=== PATIENT | male | born 1970 | race Hispanic/Latino ===

== ENCOUNTER 2017-05-24 06:41 | Emergency (ER) | payer SELFPAY | END 2017-05-24 07:10 | disposition left against medical advice (07) | LOC: ED 06:41 | DX: M54.9 Dorsalgia, unspecified (principal); Z53.21 Procedure and treatment not carried out due to patient leaving prior to being seen by health care provider ==

== ENCOUNTER 2020-10-14 10:18 | Emergency (ER) | payer SELFPAY ==
[2020-10-14] MEDS ORDERED: KETOROLAC 60 MG/2 ML INJ IM ONE (11:30)
--- NOTE | 2020-10-14 12:14 | Emergency Department Report ---
ED General Adult HPI - General Chief complaint: Back Pain/Injury Stated complaint: MUSCEL BACK SPASMS Time Seen by Provider: 10/14/20 10:58 Source: patient Mode of arrival: Wheelchair Limitations: No Limitations - History of Present Illness Initial comments: 49-year-old male patient presents with complaints of sciatica flare starting yesterday. Patient states the day prior he went fishing and developed a little low back pain that worsened upon waking the next day. He reports a history of sciatica but states the symptoms are consistent with his normal sciatica flare. He reports Flexeril and ibuprofen are not helping. Patient rates his pain as a 10/10 in severity and describes it as intermittent spasms that radiate down both his legs. He denies any numbness/tingling/weakness in his legs, saddle paresthesias, loss of bladder/bowel control, direct injuries to his spine, or history of cancer. Patient also denies any urinary symptoms or bowel changes -: Sudden Severity scale (0 -10): 10 - Related Data Home Medications Medication Instructions Recorded Confirmed Last Taken Aspirin [Aspirin BABY CHEW TAB] 81 mg PO QDAY 01/07/16 01/07/16 Unknown Glimepiride [Amaryl] 4 mg PO QAM 01/07/16 01/07/16 Unknown Insulin Glargine,Hum.rec.anlog 100 unit SQ QHS 01/07/16 01/07/16 Unknown [Lantus Solostar] Latanoprost 0.005% [Xalatan 0.005%] 1 drop OP QPM 01/07/16 01/07/16 Unknown Loperamide [Imodium] 2 mg PO DAILY 01/07/16 01/07/16 Unknown Lovastatin [Altoprev] 20 mg PO QPM 01/07/16 01/07/16 Unknown Pregabalin [Lyrica] 200 mg PO TID 01/07/16 01/07/16 Unknown Terbinafine (Nf) [LamiSIL] 250 mg PO QHS 01/07/16 01/07/16 Unknown Triamter/Hctz 37.5-25 mg 1 tab PO QDAY 01/07/16 01/07/16 Unknown [Maxzide-25] Zolpidem (Nf) [Ambien] 10 mg PO QHS PRN 01/07/16 01/07/16 Unknown lisinopriL [Zestril TAB] 40 mg PO QDAY 01/07/16 01/07/16 Unknown metFORMIN [Glucophage] 1,000 mg PO BID 01/07/16 01/07/16 Unknown Previous Rx's Medication Instructions Recorded Last Taken Type Dicyclomine [Bentyl] 10 mg PO QID PRN #20 capsule 01/07/16 Unknown Rx Ketorolac [Toradol] 10 mg PO Q6H PRN #20 tablet 01/07/16 Unknown Rx Ondansetron [Zofran Odt] 4 mg PO QID PRN #20 tab.rapdis 01/07/16 Unknown Rx Ibuprofen [Motrin 600 MG tab] 600 mg PO Q8H PRN #12 tablet 02/16/18 Unknown Rx Diclofenac Sodium 50 mg PO TID PRN #21 tablet.dr 10/14/20 Unknown Rx Prednisone [predniSONE 10 mg 10 mg PO .TAPER #1 tab.ds.pk 10/14/20 Unknown Rx (6-Day Pack, 21 Tabs)] methocarbamoL [Methocarbamol] 1,500 mg PO TID PRN #30 tablet 10/14/20 Unknown Rx Allergies Allergy/AdvReac Type Severity Reaction Status Date / Time Penicillins Allergy Swelling Verified 10/14/20 10:57 ED Review of Systems ROS: Stated complaint: MUSCEL BACK SPASMS Other details as noted in HPI Constitutional: denies: malaise Respiratory: denies: shortness of breath Cardiovascular: denies: chest pain Gastrointestinal: denies: abdominal pain, nausea, vomiting Genitourinary: denies: urgency, dysuria, frequency, hematuria Neurological: denies: numbness, paresthesias, abnormal gait ED Past Medical Hx - Past Medical History Hx Hypertension: Yes Hx Diabetes: Yes Additional medical history: glaucoma. neuropathy - Social History Smoking Status: Current Every Day Smoker Substance Use Type: None - Medications Home Medications: Home Medications Medication Instructions Recorded Confirmed Last Taken Type Aspirin [Aspirin BABY CHEW TAB] 81 mg PO QDAY 01/07/16 01/07/16 Unknown History Dicyclomine [Bentyl] 10 mg PO QID PRN #20 capsule 01/07/16 Unknown Rx Glimepiride [Amaryl] 4 mg PO QAM 01/07/16 01/07/16 Unknown History Insulin Glargine,Hum.rec.anlog 100 unit SQ QHS 01/07/16 01/07/16 Unknown History [Lantus Solostar] Ketorolac [Toradol] 10 mg PO Q6H PRN #20 tablet 01/07/16 Unknown Rx Latanoprost 0.005% [Xalatan 0.005%] 1 drop OP QPM 01/07/16 01/07/16 Unknown History Loperamide [Imodium] 2 mg PO DAILY 01/07/16 01/07/16 Unknown History Lovastatin [Altoprev] 20 mg PO QPM 01/07/16 01/07/16 Unknown History Ondansetron [Zofran Odt] 4 mg PO QID PRN #20 tab.rapdis 01/07/16 Unknown Rx Pregabalin [Lyrica] 200 mg PO TID 01/07/16 01/07/16 Unknown History Terbinafine (Nf) [LamiSIL] 250 mg PO QHS 01/07/16 01/07/16 Unknown History Triamter/Hctz 37.5-25 mg 1 tab PO QDAY 01/07/16 01/07/16 Unknown History [Maxzide-25] Zolpidem (Nf) [Ambien] 10 mg PO QHS PRN 01/07/16 01/07/16 Unknown History lisinopriL [Zestril TAB] 40 mg PO QDAY 01/07/16 01/07/16 Unknown History metFORMIN [Glucophage] 1,000 mg PO BID 01/07/16 01/07/16 Unknown History Ibuprofen [Motrin 600 MG tab] 600 mg PO Q8H PRN #12 tablet 02/16/18 Unknown Rx Diclofenac Sodium 50 mg PO TID PRN #21 tablet.dr 10/14/20 Unknown Rx Prednisone [predniSONE 10 mg 10 mg PO .TAPER #1 tab.ds.pk 10/14/20 Unknown Rx (6-Day Pack, 21 Tabs)] methocarbamoL [Methocarbamol] 1,500 mg PO TID PRN #30 tablet 10/14/20 Unknown Rx ED Physical Exam - General Limitations: No Limitations General appearance: alert, in no apparent distress - Head Head exam: Present: atraumatic, normocephalic - Respiratory Respiratory exam: Absent: respiratory distress - Cardiovascular Cardiovascular Exam: Present: regular rate - GI/Abdominal GI/Abdominal exam: Present: soft. Absent: distended, tenderness - Extremities Exam Extremities exam: Present: full ROM - Back Exam Back exam: Present: full ROM - Expanded Back Exam Expanded Back exam: Absent: saddle anesthesia Back exam: Sciatic Notch Tenderness: Left, Right - Neurological Exam Neurological exam: Present: alert, oriented X3, normal gait. Absent: motor sensory deficit - Expanded Neurological Exam Expanded Sensory exam: Lower Extremity Light Touch: Normal Motor strength exam: RLE: 5, LLE: 5 - Psychiatric Psychiatric exam: Present: normal affect, normal mood - Skin Skin exam: Present: warm, dry, intact, normal color. Absent: rash ED Course Vital Signs 10/14/20 10/14/20 10/14/20 10:57 12:39 15:09 Temperature 98.2 F Pulse Rate 85 75 Respiratory 15 Rate Blood Pressure 182/103 Blood Pressure 188/90 161/92 [Left] O2 Sat by Pulse 97 99 Oximetry ED Medical Decision Making - Medical Decision Making 13-year-old -[place] male patient presents with complaints of bilateral eye redness for 7 days. Patient states his symptoms started in the left eye and moved to the right eye after 1 day. He admits to purulent drainage and waking up with his eyes crusted shut. He denies any vision changes or headaches. He rates his pain as a 7/10 in severity and denies trying any OTC medications for his symptoms. No foreign body sensation or sensitivity to light per patient. He also denies any pain with eye movement or difficulty moving his eyes Lateral sciatic notch tenderness noted on exam. Patient given Robaxin and Toradol and states his symptoms have resolved. Discussed the importance of stretching, icing, and rest. Patient to follow-up with PCP in 3 to 5 days. Discussed signs and symptoms that should prompt immediate return to the emergency department in detail patient verbalized understanding. Also discussed elevated blood pressure, patient verbalizes history of hypertension and states he is no longer on medication for this. Patient to follow-up with his PCP for recheck of his blood pressure. Critical care attestation.: If time is entered above; I have spent that time in minutes in the direct care of this critically ill patient, excluding procedure time. ED Disposition Clinical Impression: Bilateral low back pain with sciatica Disposition: TO HOME OR SELFCARE Is pt being admited?: No Condition: Stable Instructions: Sciatica Prescriptions: Diclofenac Sodium 50 mg PO TID PRN #21 tablet. PRN Reason: pain methocarbamoL [Methocarbamol] 1,500 mg PO TID PRN #30 tablet PRN Reason: Spasms Prednisone [predniSONE 10 mg (6-Day Pack, 21 Tabs)] 10 mg PO .TAPER #1 tab.ds.pk Referrals: [facility] [Provider Group] - 3-5 Days [facility],MD [Primary Care Provider] - 3-5 Days
[2020-10-14 15:10] VITALS: BP 161/92
== END 2020-10-14 12:39 | disposition home or self-care (01) ==
LOC: ED 10:18
DX: M54.42 Lumbago with sciatica, left side (principal); M54.41 Lumbago with sciatica, right side; I10 Essential (primary) hypertension; E11.9 Type 2 diabetes mellitus without complications; F17.200 Nicotine dependence, unspecified, uncomplicated; Z98.890 Other specified postprocedural states; Z79.899 Other long term (current) drug therapy; Z88.0 Allergy status to penicillin; Z79.82 Long term (current) use of aspirin; Z79.4 Long term (current) use of insulin
CPT/HCPCS: 96372; 99282; J1885

== ENCOUNTER 2022-01-22 01:20 | Emergency (ER) | payer SELFPAY ==
[2022-01-22 01:25] VITALS: BP 196/99
[2022-01-22 02:02] LABS: Basophils # (Auto) 0.1 K/mm3 (0.0-0.1); Basophils % (Auto) 1.1 % (0.0-1.8); Eosinophils # (Auto) 0.3 K/mm3 (0.0-0.4); Eosinophils % (Auto) 2.7 % (0.0-4.3); Hematocrit 42.9 % (35.5-45.6); Hemoglobin 14.8 gm/dl (11.8-15.2); Lymphocytes # (Auto) 2.8 K/mm3 (1.2-5.4); Lymphocytes % (Auto) 22.2 % (13.4-35.0); Mean Corpuscular HGB Conc 34 % (32-34); Mean Corpuscular Volume 86 fl (84-94); Monocytes # (Auto) 0.6 K/mm3 (0.0-0.8); Platelet Count 205 K/mm3 (140-440); Red Blood Count 4.97 M/mm3 (3.65-5.03); Red Cell Distribution Width 13.8 % (13.2-15.2)
[2022-01-22 02:20] LABS: Alanine Aminotransferase 37 units/L (7-56); BUN/Creatinine Ratio 12; Blood Urea Nitrogen 13 mg/dL (9-20); Calcium 9.5 mg/dL (8.4-10.2); Hemolysis Index 44
== END 2022-01-22 14:51 | disposition left against medical advice (07) ==
LOC: ED 01:20
DX: I10 Essential (primary) hypertension (principal); Z53.21 Procedure and treatment not carried out due to patient leaving prior to being seen by health care provider
CPT/HCPCS: 36415; 80053; 85025

== ENCOUNTER 2022-01-25 12:33 | Emergency (ER) | payer SELFPAY ==
--- NOTE | 2022-01-25 15:39 | Event Note ---
ED Screening Note Date of service: 01/25/22 Time: 15:38 ED Screening Note: Concerned about High B/P and c/o headache pain. Stopped taking meds. took a Lisinopril 10 mg p.o. [employer] that was his mother's med This initial assessment/diagnostic orders/clinical plan/treatment(s) is/are subject to change based on patients health status, clinical progression and re- assessment by fellow clinical providers in the ED. Further treatment and workup at subsequent clinical providers discretion. Patient/guardian urged not to elope from the ED as their condition may be serious if not clinically assessed and managed. Initial orders include: Active Orders 24 hr Category Date Time Status EKG (12 lead) Stat Cardiology 01/25/22 15:31 Ordered Tech to do EKG .once Care 01/25/22 15:32 Ordered Complete Blood Count Auto Diff Stat Lab 01/25/22 15:31 Ordered Comprehensive Metabolic Panel Stat Lab 01/25/22 15:31 Ordered Troponin T Stat Lab 01/25/22 15:31 Ordered
[2022-01-25 16:14] LABS: Basophils # (Auto) 0.1 K/mm3 (0.0-0.1); Basophils % (Auto) 0.9 % (0.0-1.8); Eosinophils # (Auto) 0.2 K/mm3 (0.0-0.4); Eosinophils % (Auto) 1.6 % (0.0-4.3); Hematocrit 45.1 % (35.5-45.6); Hemoglobin 15.5 gm/dl (11.8-15.2); Lymphocytes # (Auto) 2.2 K/mm3 (1.2-5.4); Lymphocytes % (Auto) 21.5 % (13.4-35.0); Mean Corpuscular HGB Conc 34 % (32-34); Mean Corpuscular Volume 87 fl (84-94); Monocytes # (Auto) 0.6 K/mm3 (0.0-0.8); Monocytes % (Auto) 5.9 % (0.0-7.3); Platelet Count 202 K/mm3 (140-440); Red Blood Count 5.18 M/mm3 (3.65-5.03); Red Cell Distribution Width 13.6 % (13.2-15.2)
[2022-01-25 17:52] LABS: Alanine Aminotransferase 39 units/L (7-56); Albumin 3.9 g/dL (3.9-5); BUN/Creatinine Ratio 9; Blood Urea Nitrogen 9 mg/dL (9-20); Hemolysis Index 7
[2022-01-26] MEDS ORDERED: SODIUM CHLORIDE 0.9% 1000 ML 1,000 ML IV ONE (02:01)
[2022-01-26] MEDS ORDERED: INSULIN REGULAR, HUMAN 100 UNITS/1 ML IV ONE (02:02)
[2022-01-26] MEDS ORDERED: hydrALAZINE 20 MG/1 ML INJ IV ONE (02:49)
[2022-01-26] MEDS ORDERED: ACETAMINOPHEN 325 MG TAB PO ONE (02:57)
--- NOTE | 2022-01-26 03:32 | Emergency Department Report ---
ED General Adult HPI - General Chief complaint: High BP Stated complaint: BP Time Seen by Provider: 01/26/22 02:01 Source: patient Mode of arrival: Ambulatory Limitations: No Limitations - History of Present Illness Initial comments: Patient is a 51-year-old male presenting to ED with complaint of hypertension. States he currently does not take any antihypertensive medications however was on them previously. Reports associated occipital headache. Severity scale (0 -10): 7 - Related Data Home Medications Medication Instructions Recorded Confirmed Last Taken Aspirin [Aspirin BABY CHEW TAB] 81 mg PO QDAY 01/07/16 01/07/16 Unknown Glimepiride [Amaryl] 4 mg PO QAM 01/07/16 01/07/16 Unknown Insulin Glargine,Hum.rec.anlog 100 unit SQ QHS 01/07/16 01/07/16 Unknown [Lantus Solostar] Latanoprost 0.005% [Xalatan 0.005%] 1 drop OP QPM 01/07/16 01/07/16 Unknown Loperamide [Imodium] 2 mg PO DAILY 01/07/16 01/07/16 Unknown Lovastatin [Altoprev] 20 mg PO QPM 01/07/16 01/07/16 Unknown Pregabalin [Lyrica] 200 mg PO TID 01/07/16 01/07/16 Unknown Terbinafine (Nf) [LamiSIL] 250 mg PO QHS 01/07/16 01/07/16 Unknown Triamter/Hctz 37.5-25 mg 1 tab PO QDAY 01/07/16 01/07/16 Unknown [Maxzide-25] Zolpidem (Nf) [Ambien] 10 mg PO QHS PRN 01/07/16 01/07/16 Unknown lisinopriL [Zestril TAB] 40 mg PO QDAY 01/07/16 01/07/16 Unknown metFORMIN [Glucophage] 1,000 mg PO BID 01/07/16 01/07/16 Unknown Previous Rx's Medication Instructions Recorded Last Taken Type Dicyclomine [Bentyl] 10 mg PO QID PRN #20 capsule 01/07/16 Unknown Rx Ketorolac [Toradol] 10 mg PO Q6H PRN #20 tablet 01/07/16 Unknown Rx Ondansetron [Zofran Odt] 4 mg PO QID PRN #20 tab.rapdis 01/07/16 Unknown Rx Diclofenac Sodium 50 mg PO TID PRN #21 tablet.dr 10/14/20 Unknown Rx Prednisone [predniSONE 10 mg 10 mg PO .TAPER #1 tab.ds.pk 10/14/20 Unknown Rx (6-Day Pack, 21 Tabs)] methocarbamoL [Methocarbamol] 1,500 mg PO TID PRN #30 tablet 10/14/20 Unknown Rx Clindamycin [Clindamycin CAP] 300 mg PO Q8H #40 cap 04/14/21 Unknown Rx Ibuprofen [Motrin 600 MG tab] 600 mg PO Q8H PRN #12 tablet 04/14/21 Unknown Rx hydroCHLOROthiazide [HCTZ] 25 mg PO QDAY #30 tablet 01/26/22 Unknown Rx Allergies Allergy/AdvReac Type Severity Reaction Status Date / Time Penicillins Allergy Swelling Verified 10/14/20 10:57 ED Review of Systems ROS: Stated complaint: BP Other details as noted in HPI Constitutional: denies: chills, fever Respiratory: denies: cough, shortness of breath, wheezing Cardiovascular: denies: chest pain, palpitations Gastrointestinal: denies: abdominal pain, nausea, diarrhea Musculoskeletal: denies: back pain, joint swelling, arthralgia Skin: denies: rash, lesions Neurological: headache Psychiatric: denies: anxiety, depression ED Past Medical Hx - Past Medical History Previous Medical History?: Yes Hx Hypertension: Yes Hx Diabetes: Yes Additional medical history: glaucoma. neuropathy - Surgical History Past Surgical History?: No - Social History Smoking Status: Current Every Day Smoker Substance Use Type: None - Medications Home Medications: Home Medications Medication Instructions Recorded Confirmed Last Taken Type Aspirin [Aspirin BABY CHEW TAB] 81 mg PO QDAY 01/07/16 01/07/16 Unknown History Dicyclomine [Bentyl] 10 mg PO QID PRN #20 capsule 01/07/16 Unknown Rx Glimepiride [Amaryl] 4 mg PO QAM 01/07/16 01/07/16 Unknown History Insulin Glargine,Hum.rec.anlog 100 unit SQ QHS 01/07/16 01/07/16 Unknown History [Lantus Solostar] Ketorolac [Toradol] 10 mg PO Q6H PRN #20 tablet 01/07/16 Unknown Rx Latanoprost 0.005% [Xalatan 0.005%] 1 drop OP QPM 01/07/16 01/07/16 Unknown History Loperamide [Imodium] 2 mg PO DAILY 01/07/16 01/07/16 Unknown History Lovastatin [Altoprev] 20 mg PO QPM 01/07/16 01/07/16 Unknown History Ondansetron [Zofran Odt] 4 mg PO QID PRN #20 tab.rapdis 01/07/16 Unknown Rx Pregabalin [Lyrica] 200 mg PO TID 01/07/16 01/07/16 Unknown History Terbinafine (Nf) [LamiSIL] 250 mg PO QHS 01/07/16 01/07/16 Unknown History Triamter/Hctz 37.5-25 mg 1 tab PO QDAY 01/07/16 01/07/16 Unknown History [Maxzide-25] Zolpidem (Nf) [Ambien] 10 mg PO QHS PRN 01/07/16 01/07/16 Unknown History lisinopriL [Zestril TAB] 40 mg PO QDAY 01/07/16 01/07/16 Unknown History metFORMIN [Glucophage] 1,000 mg PO BID 01/07/16 01/07/16 Unknown History Diclofenac Sodium 50 mg PO TID PRN #21 tablet. 10/14/20 Unknown Rx Prednisone [predniSONE 10 mg 10 mg PO .TAPER #1 tab.ds.pk 10/14/20 Unknown Rx (6-Day Pack, 21 Tabs)] methocarbamoL [Methocarbamol] 1,500 mg PO TID PRN #30 tablet 10/14/20 Unknown Rx Clindamycin [Clindamycin CAP] 300 mg PO Q8H #40 cap 04/14/21 Unknown Rx Ibuprofen [Motrin 600 MG tab] 600 mg PO Q8H PRN #12 tablet 04/14/21 Unknown Rx hydroCHLOROthiazide [HCTZ] 25 mg PO QDAY #30 tablet 01/26/22 Unknown Rx ED Physical Exam - General Limitations: No Limitations General appearance: alert, in no apparent distress - Head Head exam: Present: atraumatic, normocephalic - Eye Eye exam: Present: normal appearance - Respiratory Respiratory exam: Present: normal lung sounds bilaterally. Absent: respiratory distress - Cardiovascular Cardiovascular Exam: Present: regular rate, normal rhythm, normal heart sounds - GI/Abdominal GI/Abdominal exam: Present: soft. Absent: distended, tenderness - Rectal Rectal exam: Present: deferred - Neurological Exam Neurological exam: Present: alert, oriented X3 - Psychiatric Psychiatric exam: Present: normal affect, normal mood - Skin Skin exam: Present: warm, dry, intact, normal color ED Course Vital Signs 01/25/22 01/26/22 01/26/22 15:25 03:12 03:16 Temperature 98.1 F Pulse Rate 78 Respiratory 20 Rate Blood Pressure 194/106 Blood Pressure 168/101 [Right] O2 Sat by Pulse 100 100 99 Oximetry 01/26/22 01/26/22 01/26/22 03:21 03:30 03:46 Temperature Pulse Rate 58 L Respiratory Rate Blood Pressure 172/102 214/97 164/90 Blood Pressure [Right] O2 Sat by Pulse 100 99 Oximetry 01/26/22 01/26/22 01/26/22 04:00 04:16 04:30 Temperature Pulse Rate Respiratory Rate Blood Pressure 194/106 185/101 181/97 Blood Pressure [Right] O2 Sat by Pulse 100 100 99 Oximetry 01/26/22 01/26/22 04:46 05:00 Temperature Pulse Rate Respiratory Rate Blood Pressure 173/110 159/99 Blood Pressure [Right] O2 Sat by Pulse 99 99 Oximetry ED Medical Decision Making - Lab Data Result diagrams: 01/25/22 15:54 01/25/22 15:54 - Medical Decision Making CBC and CMP grossly unremarkable except for serum glucose of 419. Patient given IV fluids and 8 units of IV insulin. He was also given IV hydralazine and labetalol for his hypertension. On final reassessment blood pressure is 151/101. Accu-Chek is 176. Will start on HCTZ. Patient states he has already arranged follow-up with his PCP. Stable for discharge. Critical care attestation.: If time is entered above; I have spent that time in minutes in the direct care of this critically ill patient, excluding procedure time. ED Disposition Clinical Impression: Hypertension, Hyperglycemia due to type 2 diabetes mellitus Disposition: HOME / SELF CARE / HOMELESS Is pt being admited?: No Condition: Stable Instructions: Hypertension (ED), Diabetes Mellitus Type 2 in Adults (ED), Type 2 Diabetes Mellitus, Self Care, Adult, Hypertension, Adult Additional Instructions: Please follow-up with your regular doctor within 1 to 2 weeks. You may return i f your symptoms worsen.
[2022-01-26 06:53] VITALS: BP 170/101
--- NOTE | 2022-01-26 10:53 | Electrocardiograph Report ---
[facility] Test Date: 2022-01-25 Test Time: 15:37:16 Pat Name: HAMIDA THORNTON Department: Room: Gender: M [employer] Mixer: [place] GAR RN : 1970 Requested By: LYNN VENCES Order Number: [id number] Reading MD: Frank Mendez Measurements Intervals [place] Rate: 66 P: 9 CO: 137 QRS: -32 QRSD: 74 T: 60 QT: 370 QTc: 388 Interpretive Statements Sinus rhythm Left axis deviation No previous ECG available for comparison Electronically Signed On 01-26-2022 10:53:35 EDT by Frank Mendez
== END 2022-01-26 07:07 | disposition home or self-care (01) ==
LOC: ED 12:33
DX: I10 Essential (primary) hypertension (principal); E11.65 Type 2 diabetes mellitus with hyperglycemia; E11.9 Type 2 diabetes mellitus without complications; F17.200 Nicotine dependence, unspecified, uncomplicated; Z88.0 Allergy status to penicillin
CPT/HCPCS: 36415; 80053; 84484; 85025; 93005; 96361; 96374; 96375; 99283; J0360; J3490; 82962; Q9967; J1815